=== PATIENT | male | born 1935 | race Caucasian/White ===

== ENCOUNTER → 2017-05-21 | Outpatient (CLI) | payer OTHER ==
[~2017-05-21] MED LIST: GADOBUTROL 10 ML VIAL IVP ONE
== END ==
LOC: FIMAGING 09:12
PROVIDERS: ATTEND Internal Medicine Hematology & Oncology
DX: M50.31 Other cervical disc degeneration, high cervical region (principal); M48.02 Spinal stenosis, cervical region; M46.92 Unspecified inflammatory spondylopathy, cervical region; M50.33 Other cervical disc degeneration, cervicothoracic region; M46.93 Unspecified inflammatory spondylopathy, cervicothoracic region; M48.03 Spinal stenosis, cervicothoracic region
CPT/HCPCS: 72156; A9585

== ENCOUNTER → 2017-07-02 | Outpatient (CLI) | payer OTHER | LOC: BHFA 10:00 | PROVIDERS: ATTEND Internal Medicine | DX: R06.02 Shortness of breath (principal) ==

== ENCOUNTER → 2017-07-12 | Outpatient (CLI) | payer OTHER | LOC: BHFA 08:30 | PROVIDERS: ATTEND Internal Medicine Cardiovascular Disease | DX: R06.02 Shortness of breath (principal); R94.39 Abnormal result of other cardiovascular function study | CPT/HCPCS: 78452; 93017; A9500 ==

== ENCOUNTER 2018-06-08 08:04 | Emergency (ER) | payer OTHER ==
--- NOTE | 2018-06-08 08:14 | EDPHY ---
H & P Stated Complaint: right sided abdominal pain/nausea starting at 0100 Time Seen by Provider: 06/08/18 08:11 - Personal History Current Tetanus/Diphtheria Vaccine: Yes Current Tetanus Diphtheria and Acellular Pertussis (TDAP): Yes Tetanus Vaccine Date: < 10 years - Medical/Surgical History Hx Asthma: No Hx Chronic Respiratory Disease: No Hx Diabetes: No Hx Cardiac Disease: Yes Hx Renal Disease: No Hx Cirrhosis: No Hx Alcoholism: No Hx HIV/AIDS: No Hx Splenectomy or Spleen Trauma: No Other PMH: HTN, hyperlipidemia, DVT, PE - Social History Smoking Status: Never smoked Constitutional: Initial Vital Signs Temperature (C) 36.3 C 06/08/18 08:06 Heart Rate 57 L 06/08/18 08:06 Respiratory Rate 18 06/08/18 08:06 Blood Pressure 145/90 H 06/08/18 08:06 O2 Sat (%) 92 06/08/18 08:06 O2 Delivery Mode Room Air Allergies/Adverse Reactions: No Known Allergies Allergy (Verified 06/08/18 08:06) Home Medications: Medication Instructions Recorded Atenolol 06/08/18 Hyzaar 50/12.5MG (*) 06/08/18 Lipitor 06/08/18 Ondansetron Odt [Zofran Odt 4 mg 4 mg PO Q4 PRN #10 tab 06/08/18 (RX)] Xarelto 06/08/18 Medical Decision Making - Diagnostics Imaging Results: Imaging Impressions Abdomen/Pelvis CT 06/08/18 08:38 Impression: 1. No evidence of urinary tract calculus. 2. No significant abnormality identified within the abdomen and pelvis. 3. Peripelvic renal cysts as well as left renal parenchymal cysts. 4. Incidental cyst left lobe liver lateral segment. 5. Levoscoliosis mid lumbar spine with associated degenerative disk disease. Marked degenerative changes right hip. Attention: This CT examination is specifically designed to evaluate patients who are clinically suspected of having acute obstructive uropathy. This examination does not use radiographic contrast, and as such, provides only a limited evaluation of the abdomen, pelvis and retroperitoneum. If there is further clinical suspicion for pathological conditions other than obstructive uropathy, a complete CT evaluation of the abdomen and pelvis utilizing intravenous, oral, and rectal contrast should be considered. Findings discussed with Aldair Barragan MD at 9:44 hour, 06/08/2018. Imaging: Discussed imaging studies w/ automotive light mechanic Radiologist, I viewed and interpreted images myself ED Course/Re-evaluation: CHIEF COMPLAINT: Right-sided flank pain, nausea HISTORY OF PRESENT ILLNESS: The patient is an 82 y/o male with a history of a DVT, PE, umbilical hernia repair, and lower back problems complaining of worsening dull, continuous, right flank pain associated with nausea. The patient was sitting for over 3 hours yesterday, which is abnormal for him. At 01:30 last night, 7 hours ago, he developed right-sided abdominal pain. He initially thought this pain was due to a strained muscle, so he took some Aleve. After taking the Aleve, his symptoms improved. Although he thought this pain was due to a strained muscle, it did feel different than prior low back pain. When he was eating breakfast this morning he developed the pain again and also became nauseous. He then had a normal bowel movement. The pain continued to increase this morning and is currently a deep pain located more towards the back than the front of his abdomen. He has been unstable while walking, which the patient believes is due to the pain. However, his son believes the patient is dizzy and appears clammy. He denies history of kidney stones. Denies headache, chest pain, shortness of breath, urinary or bowel complaints, numbness, paresthesias. REVIEW OF SYSTEMS: A comprehensive 10 system review of systems is otherwise negative aside from the elements mentioned in the history of present illness and medical decision making. PHYSICAL EXAM: HR, BP, O2 Sat, RR. Temp noted General Appearance: Alert, well hydrated, appropriate, and non-toxic appearing. Head: Atraumatic without scalp tenderness or obvious injury Eyes: Pupils equal, round, reactive to light and accommodation, EOMI, no trauma , no injection. Ears: Clear bilaterally, no perforation, normal landmarks Nose: Atraumatic, no rhinorrhea, clear. Throat: There is no erythema or exudates, no lesions, normal tonsils, mucus membranes moist. Neck: Supple, nontender, no lymphadenopathy. Respiratory: No retractions, no distress, no wheezes, and no accessory muscle use. Lungs are clear to auscultation bilaterally. Cardiovascular: Regular rate and rhythm, no murmurs, rubs, or gallops. Bilateral carotid, radial, dorsalis pedis, and posterior tibial pulses intact. Good capillary refill all extremities. Gastrointestinal: Abdomen is soft, nontender, non-distended, no masses, no rebound, no guarding, no peritoneal signs. Musculoskeletal: Normal active ROM of all extremities, atraumatic. Neurological: Alert, appropriate, and interactive. The patient has normal DTRs and non-focal cranial nerves, motor, sensory, and cerebellar exam. Skin: No rashes, good turgor, no nodules on palpation. Past medical history: DVT, PE, hypertension, hyperlipidemia Past surgical history: Umbilical hernia repair Family history: Denies Social history: and son at bedside, lives in [place], employed DIAGNOSTICS/PROCEDURES/CRITICAL CARE TIME: Abdominopelvic CT: No acute findings DIFFERENTIAL DIAGNOSIS: The differential diagnosis for the patient's flank pain included but was not limited to musculoskeletal causes, kidney stone, pyelonephritis, shingles, diverticulitis, appendicitis, and aortic aneurysm. MEDICAL DECISION MAKING: The patient is an 82 y/o male with a history of a DVT, PE, umbilical hernia repair, and lower back problems presenting with worsening dull, continuous, right flank pain associated with nausea. He has a benign abdominal exam. Labs and abdominopelvic CT ordered; 1L IV NS and 4mg IV Zofran administered. 0858: I reviewed patient's labs which reveals pre-renal dehydration; there is no WBC and his labs are otherwise okay. Abdominopelvic CT still pending. 0945: I spoke with Dr. Ornelas, radiologist, regarding patient's abdominopelvic CT. There are no acute findings on the CT scan. Patient's symptoms are most likely due to musculoskeletal causes. 1000: I reassessed patient and discussed laboratory and imaging studies. He states that he feels much better. I have offered the patient a 24 hour admission for further observation, which he has politely declined. I have prescribed him Zofran for his nausea. Return precautions provided; patient is comfortable with this plan. - Data Points Laboratory Results: Laboratory Results 06/08/18 08:25 06/08/18 08:25 06/08/18 06/08/18 06/08/18 09:30 08:46 08:25 WBC RBC Hgb POC Hgb 12.9 gm/dL L gm/dL (13.7-17.5) Hct POC Hct 38 % L % (40-51) MCV MCH MCHC RDW Plt Count MPV Neut % (Auto) Lymph % (Auto) [place] % (Auto) Eos % (Auto) Baso % (Auto) Nucleat RBC Rel Count Absolute Neuts (auto) Absolute Lymphs (auto) Absolute Monos (auto) Absolute Eos (auto) Absolute Basos (auto) Absolute Nucleated RBC Immature Gran % Immature Gran # POC Sodium 143 mEq/L mEq/L (135-145) Sodium 141 mEq/L mEq/L (135-145) POC Potassium 3.7 mEq/L mEq/L (3.3-5.0) Potassium 4.1 mEq/L mEq/L (3.3-5.0) POC Chloride 107 mEq/L mEq/L (97-110) Chloride 108 mEq/L mEq/L (97-110) Carbon Dioxide 24 mEq/l mEq/l (22-31) Anion Gap 9 mEq/L mEq/L (8-16) POC BUN 23 mg/dL mg/dL (7-23) BUN 24 mg/dL H mg/dL (7-23) Creatinine 1.3 mg/dL mg/dL (0.7-1.3) POC Creatinine 1.4 mg/dL H mg/dL (0.7-1.3) Estimated GFR 53 Glucose 125 mg/dL H mg/dL (70-100) POC Glucose 130 mg/dL H mg/dL (70-100) Calcium 10.1 mg/dL mg/dL (8.5-10.4) Total Bilirubin 0.9 mg/dL mg/dL (0.1-1.4) Conjugated Bilirubin Pending Unconjugated Bilirubin Pending AST 26 IU/L IU/L (17-59) ALT 36 IU/L IU/L (21-72) Alkaline Phosphatase 65 IU/L IU/L (38-126) Total Protein 6.4 g/dL g/dL (6.3-8.2) Albumin 3.7 g/dL g/dL (3.5-5.0) Lipase Pending Urine Color YELLOW Urine Appearance HAZY Urine pH 5.0 (5.0-7.5) Ur Specific [place] 1.019 (1.002-1.030) Urine Protein NEGATIVE (NEGATIVE) Urine Ketones NEGATIVE (NEGATIVE) Urine Blood NEGATIVE (NEGATIVE) Urine Nitrate NEGATIVE (NEGATIVE) Urine Bilirubin NEGATIVE (NEGATIVE) Urine Urobilinogen NEGATIVE EU EU (0.2-1.0) Ur Leukocyte Esterase NEGATIVE (NEGATIVE) Urine RBC 1-3 /hpf /hpf (0-3) Urine WBC 1-3 /hpf /hpf (0-3) Ur Epithelial Cells NONE SEEN /lpf /lpf (NONE-1+) Urine Mucus TRACE /lpf /lpf (NONE-1+) Urine Glucose NEGATIVE (NEGATIVE) 06/08/18 08:25 WBC 7.47 10^3/uL 10^3/uL (3.80-9.50) RBC 4.23 10^6/uL L 10^6/uL (4.40-6.38) Hgb 13.6 g/dL L g/dL (13.7-17.5) POC Hgb Hct 39.3 % L % (40.0-51.0) POC Hct MCV 92.9 fL fL (81.5-99.8) MCH 32.2 pg pg (27.9-34.1) MCHC 34.6 g/dL g/dL (32.4-36.7) RDW 13.2 % % (11.5-15.2) Plt Count 161 10^3/uL 10^3/uL (150-400) MPV 8.6 fL L fL (8.7-11.7) Neut % (Auto) 52.0 % % (39.3-74.2) Lymph % (Auto) 34.9 % % (15.0-45.0) [place] % (Auto) 8.8 % % (4.5-13.0) Eos % (Auto) 3.3 % % (0.6-7.6) Baso % (Auto) 0.7 % % (0.3-1.7) Nucleat RBC Rel Count 0.0 % % (0.0-0.2) Absolute Neuts (auto) 3.88 10^3/uL 10^3/uL (1.70-6.50) Absolute Lymphs (auto) 2.61 10^3/uL 10^3/uL (1.00-3.00) Absolute Monos (auto) 0.66 10^3/uL 10^3/uL (0.30-0.80) Absolute Eos (auto) 0.25 10^3/uL 10^3/uL (0.03-0.40) Absolute Basos (auto) 0.05 10^3/uL 10^3/uL (0.02-0.10) Absolute Nucleated RBC 0.00 10^3/uL 10^3/uL (0-0.01) Immature Gran % 0.3 % % (0.0-1.1) Immature Gran # 0.02 10^3/uL 10^3/uL (0.00-0.10) POC Sodium Sodium POC Potassium Potassium POC Chloride Chloride Carbon Dioxide Anion Gap POC BUN BUN Creatinine POC Creatinine Estimated GFR Glucose POC Glucose Calcium Total Bilirubin Conjugated Bilirubin Unconjugated Bilirubin AST ALT Alkaline Phosphatase Total Protein Albumin Lipase Urine Color Urine Appearance Urine pH Ur Specific [place] Urine Protein Urine Ketones Urine Blood Urine Nitrate Urine Bilirubin Urine Urobilinogen Ur Leukocyte Esterase Urine RBC Urine WBC Ur Epithelial Cells Urine Mucus Urine Glucose Medications Given: Discontinued Medications Sodium Chloride (Ns) 500 mls @ 0 mls/hr IV EDNOW ONE; Wide Open PRN Reason: Protocol Stop: 06/08/18 08:30 Last Admin: 06/08/18 08:45 Dose: 500 mls Ondansetron HCl (Zofran) 4 mg IVP EDNOW ONE Stop: 06/08/18 08:30 Last Admin: 06/08/18 08:45 Dose: 4 mg Point of Care Test Results: Chemistry 06/08/18 08:46 POC Sodium 143 mEq/L mEq/L (135-145) POC Potassium 3.7 mEq/L mEq/L (3.3-5.0) POC Chloride 107 mEq/L mEq/L (97-110) POC BUN 23 mg/dL mg/dL (7-23) POC Creatinine 1.4 mg/dL H mg/dL (0.7-1.3) POC Glucose 130 mg/dL H mg/dL (70-100) ISTAT H&H 06/08/18 08:46 POC Hgb 12.9 gm/dL L gm/dL (13.7-17.5) POC Hct 38 % L % (40-51) Departure - Departure Disposition: Home, Routine, Self-Care Clinical Impression: Musculoskeletal back pain Abdominal pain Qualifiers: Abdominal location: generalized Qualified Code(s): R10.84 - Generalized abdominal pain Condition: Good Instructions: Ondansetron (By mouth), Acute Abdominal Pain (ED), Musculoskeletal Pain (ED), Back Pain (ED) Additional Instructions: 1. Your pain is most likely due musculoskeletal back pain. 2. Take Zofran as prescribed. 3. Followup with your PCP within one week. 4. Return to the emergency department for severe pain, fever, numbness, difficulty walking, change in location or nature of pain or other concerns. 5. Use ibuprofen and Tylenol as directed. 6. Try using a heating pad. Referrals: Elmo Ramey MD [Primary Care Provider] - As per Instructions Prescriptions: Ondansetron Odt [Zofran Odt 4 mg (RX)] 4 mg PO Q4 PRN #10 tab PRN Reason: Nausea/Vomiting, Use 1st Report Scribed for: Aldair Barragan Report Scribed by: Eladia Fisher Date of Report: 06/08/18 Time of Report: 08:13
[2018-06-08] MEDS ORDERED: ONDANSETRON 4 MG/2 ML VIAL IVP ONE (08:29)
[2018-06-08] MEDS ORDERED: NS 500 ML IV ONE (08:29)
[2018-06-08 08:40] LABS: PLATELET COUNT 161 10^3/uL (150-400)
[2018-06-08] MEDS ORDERED: ONDANSETRON 4MG PREPACK#2 BTL TAKEHOME ONE (10:08)
[2018-06-08 10:11] VITALS: BP 145/80
== END 2018-06-08 10:21 | disposition home or self-care (01) ==
DX: M79.1 Myalgia (principal); R10.9 Unspecified abdominal pain; E86.9 Volume depletion, unspecified; I10 Essential (primary) hypertension; E78.5 Hyperlipidemia, unspecified; Z86.711 Personal history of pulmonary embolism; Z86.718 Personal history of other venous thrombosis and embolism; N28.1 Cyst of kidney, acquired; K76.89 Other specified diseases of liver; M51.36 Other intervertebral disc degeneration, lumbar region; M41.86 Other forms of scoliosis, lumbar region
CPT/HCPCS: 82435-PO; 82565-PO; 82947-PO; 84132-PO; 84295-PO; 84520-PO; 85014-PO; 96374; J2405

== ENCOUNTER 2019-02-13 09:18 | Emergency (ER) | payer OTHER ==
--- NOTE | 2019-02-13 09:29 | EDPHY ---
H & P Stated Complaint: hematuria on xarelto Time Seen by Provider: 02/13/19 09:28 HPI/ROS: CHIEF COMPLAINT: Blood in urine HISTORY OF PRESENT ILLNESS: This is an 83-year-old male with takes Xarelto for DVT/PE. He presents with 2 days of carlos blood in his urine. He states that his urine appears to be entirely blood. He has been able to pass urine but notes that he is urinating more frequently than usual. He always has some trouble initiating urination and emptying his bladder. He had about 6 episodes of hematuria yesterday and 2 during the night. He has not seen clots. He has noted some light hematuria on and off for the last 1-2 months, but it always seems to resolve on its own. He did not take his dose of Xarelto this morning. He denies any pain with urination. He has not had dark stools or blood in his stools. No hematemesis. No epistaxis. He denies abdominal pain or flank pain. He has not had fever. He did have an episode of hematuria while in [place], [place] a couple of years ago. He states that it was similar to this episode. He was evaluated by urologist with cystoscopy. He was not told that there was a site of bleeding and the bleeding resolved spontaneously. He was taking Xarelto at that time also. REVIEW OF SYSTEMS: A ten system review of systems was performed and is negative with the exception of the items mentioned in the HPI. Past medical history: 1. DVT/PE 2. HTN 3. Hyperlipidemia Social history: He lives with his . 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 No tobacco use. General Appearance: Alert. Vital signs reviewed. Heart rate 58 at triage. Blood pressure 143/88. Eyes: Pupils equal and round, no conjunctival injection, no discharge. Anicteric. ENT, Mouth: Mucous membranes are moist, no oropharyngeal erythema or edema. Neck: No lymphadenopathy, supple. Respiratory: Lungs are clear to auscultation; no wheezes, rales, or rhonchi. Cardiovascular: Regular rate and rhythm; no murmur, rub, or gallop. Gastrointestinal: Abdomen is soft and nontender, no masses or organomegaly, bowel sounds normal. Skin: Warm and dry, no rashes on exposed skin, normal color. Back: Nontender to palpation over the thoracolumbar spine. No CVAT. Extremities: No lower extremity edema, no calf tenderness or swelling. Neurological: Alert and oriented. Moving all four extremities easily and equally. Psychiatric: Normal affect. - Personal History Current Tetanus Diphtheria and Acellular Pertussis (TDAP): Yes Tetanus Vaccine Date: < 10 years - Medical/Surgical History Hx Asthma: No Hx Chronic Respiratory Disease: No Hx Diabetes: No Hx Cardiac Disease: Yes Hx Renal Disease: No Hx Cirrhosis: No Hx Alcoholism: No Hx HIV/AIDS: No Hx Splenectomy or Spleen Trauma: No Other PMH: HTN, hyperlipidemia, DVT, PE - Social History Smoking Status: Never smoked Constitutional: Initial Vital Signs Temperature (C) 36.5 C 02/13/19 09:21 Heart Rate 58 L 02/13/19 09:21 Respiratory Rate 18 02/13/19 09:21 Blood Pressure 143/88 H 02/13/19 09:21 O2 Sat (%) 95 02/13/19 09:21 O2 Delivery Mode Room Air Allergies/Adverse Reactions: No Known Allergies Allergy (Verified 02/13/19 09:21) Home Medications: Medication Instructions Recorded Atenolol 06/08/18 Hyzaar 50/12.5MG (*) 06/08/18 Lipitor 06/08/18 Xarelto 06/08/18 Medical Decision Making ED Course/Re-evaluation: 83-year-old male on Xarelto with gross hematuria. He has not taken this morning 's dose of Xarelto. His hemoglobin and hematocrit are stable, consistent with previous blood work. Renal function is normal. He is not showing any signs of volume loss. He has been able to void without difficulty in the department. No clots have been visualized. Full urinalysis cannot be performed because of the amount of blood in his urine. It is my impression that this hematuria secondary to Xarelto. I have not found evidence of other sites of bleeding. He is hemodynamically stable. Other diagnostic considerations include malignancy, bladder or kidney infection, ureterolithiasis, glomerular nephritis, and BPH. Patient remained in the emergency room for 3 hr with no change in his condition. During most of that time we were awaiting a call back from the [place] urology office. He chose to leave before I received a call back, as he had a business upon meeting that he wanted to attend. I told the patient that I would contact him after I had spoken with both a urologist and his primary care physician. I spoke with Dr. Bone on the phone who assured me that the patient could be seen in follow-up. I spoke with Dr. Hedy King, specifically concerning guidelines for the patient's Xarelto, and Dr. King indicated that he would telephone the patient later in the day. 02/14/19. I was notified by ED nurse perianesthesia manager that Mr. Webb did not receive a call from any of his physicians last night. I spoke with Mr. Webb and told him that I would rectify this situation. I called Dr. King' office and spoke with Dr. Janis Carter. She assures me that she will review the patient's office chart and contact him concerning his Xarelto. I also spoke with Dr. Omid Guillen. Who is been the patient's urologist in the past. Dr. Guillen will speak with his office staff about arranging a follow-up appointment for this patient. I then spoke with Mr. Webb again and told him to expect a call from Dr. Carter and also from the urology office. I recommended that, if he does not hear from the urology office, he contact them about a follow-up appointment then. On the evening of 02/14/2019 I left a voicemail with Mr. Webb, letting him know that I was following up on earlier conversations. I left him my phone number, should he need to contact me. - Data Points Laboratory Results: Laboratory Results 02/13/19 09:40 02/13/19 09:40 Departure - Departure Disposition: Home, Routine, Self-Care Clinical Impression: Hematuria Qualifiers: Hematuria type: gross Qualified Code(s): R31.0 - Gross hematuria Condition: Good Instructions: Hematuria (ED) Additional Instructions: Hold off on your Xarelto for now. After I speak with your urologist and your primary care office I will call you with the plan. If you are unable to urinate, please return right away. Referrals: Andres Guillen MD [Medical Doctor] - As per Instructions Hedy King MD [Medical Doctor] - As per Instructions
[2019-02-13 10:01] LABS: PLATELET COUNT 206 10^3/uL (150-400)
[2019-02-13 10:11] LABS: INR 1.21 (0.83-1.16); PROTIME(PATIENT) 14.8 SEC (12.0-15.0)
[2019-02-13 12:33] VITALS: BP 157/92
== END 2019-02-13 12:55 | disposition home or self-care (01) ==
DX: R31.0 Gross hematuria (principal); I10 Essential (primary) hypertension; E78.5 Hyperlipidemia, unspecified; Z79.01 Long term (current) use of anticoagulants; Z86.718 Personal history of other venous thrombosis and embolism